=== PATIENT | female | born 1980 | race Two or more races ===

== ENCOUNTER 2023-09-16 16:50 | Outpatient (REF) | payer OTHER, SELFPAY | END 2023-09-16 16:51 | disposition home or self-care (01) | LOC: LAB 16:50 | PROVIDERS: PCP Student in an Organized Health Care Education/Training Program; Visit Provider Student in an Organized Health Care Education/Training Program | DX: M25.421 Effusion, right elbow (principal) | CPT/HCPCS: 87070 ==